=== PATIENT | male | born 1985 | race Caucasian/White ===

== ENCOUNTER 2017-01-27 18:23 | Inpatient (IN) | payer OTHER ==
--- NOTE | ~2017-01-27 | CO ---
Unit #: [id number] #: [id number] Patient: KODAK HUDSON [id number] [address] [address] [id number] I MR#: [id number] NAME: KODAK HUDSON ROOM: [facility] Age: Sex: M Admission Date: 01/27/2017 : 1985 Attending Physician: Rahul Bailey M.D. Primary Care Physician: Opal Shi M.D. CONSULTATION REPORT REASON FOR CONSULTATION Critical care management and respiratory failure. CHIEF COMPLAINT Altered mental status. HISTORY OF PRESENT ILLNESS A 31-year-old male. Past medical history significant for anxiety, depression, gastroesophageal reflux disease, history of chronic pancreatitis, who presents with the complaint of found unresponsive, altered mental status and was intubated with a possible suspicion of drug overdose. I am seeing the patient at bedside, currently on a ventilator, sedated, intubated. PAST MEDICAL HISTORY As described above. SOCIAL HISTORY Positive for substance abuse. Nonsmoker. No alcohol abuse. ALLERGIES No known drug allergies. MEDICATION 1. Xanax. 2. Celexa. 3. Temovate. 4. Prilosec. REVIEW OF SYSTEMS Unobtainable. PHYSICAL EXAMINATION VITAL SIGNS: Temperature 98. Pulse 87. Respiration 12. Blood pressure 130/70. NEUROLOGIC: Awake, alert, oriented. No neuro deficit. HEENT: PERRLA. NECK: Supple. No JVD. CHEST: Bilateral air entry. Bilateral mild rhonchi. GASTROINTESTINAL: Nontender. Soft. Bowel sounds positive. EXTREMITIES: No edema. SKIN: No rash. LYMPHATIC: No lymphadenopathy. Unit #: [id number] #: [id number] Patient: KODAK HUDSON DIAGNOSTIC STUDIES Labs and imaging have been reviewed. LABORATORY: Potassium 3.1. Drug screen is positive for methadone, benzodiazepine, cocaine, amphetamine, marijuana. IMAGING: Chest x-ray: No acute infiltrate. ASSESSMENT AND PLAN Acute respiratory failure, drug overdose, altered mental status. The plan is to continue ventilator support, GI and DVT prophylaxis, IV fluid, replace electrolytes, weaning protocol. The patient will be closely monitored. Please see orders for detailed plan. Thank you very much for this consultation. Dictated by... Martha Troncoso M.D. Dhaval TD: 01/28/2017 08:54 JOB #: [id number] CONSULTATION REPORT Page 1 of 1 X Martha Troncoso MD CONSULTATION REPORT
--- NOTE | ~2017-01-27 | CR72 ---
[facility] A Service of [facility] & [facility] RADIOLOGY TEXT RESULTS PATIENT: KODAK HUDSON LOCATION: A 228-01 : [birth year] UNIT #: [id number] AGE: [address]: Rahul Bailey MD SEX: M ORDER DR: [id number] [facility] [address] [place], [place] [address] [id number] MR#: [id number] Acc #: [id number] NAME: KODAK HUDSON : 1985 SEX: M STUDY DATE/TIME: 01/28/2017 5:31 UNIT: [facility] ROOM: [facility] STUDY DESCRIPTION: CR Chest Single View Portable Attending Physician: Rahul Bailey M.D. Ordering Physician: Wilian Henson M.D. Primary Care Physician: Opal Shi M.D. MEDICAL IMAGING REPORT This report is preliminary unless electronic signature is present EXAM Portable chest HISTORY Overdose, respiratory failure, overdose 01/27/2017. History of drug abuse. COMPARISON 01/27/2017 at 1927 hours FINDINGS Endotracheal tube remains in satisfactory position, unchanged. Small amount of right mid lung zone atelectasis. No dense airspace disease, no consolidation, no pneumothorax. Heart and mediastinum unremarkable. Dictated by... Fatemeh Canchola M.D. THIS IS AN ELECTRONICALLY VERIFIED REPORT Fatemeh Canchola M.D. at 01/29/2017 12:28 PM ROSA/lola TD: 01/28/2017 21:23 JOB #: [id number] MEDICAL IMAGING REPORT Page 1 of 1 COPY
--- NOTE | ~2017-01-27 | CT71 ---
[facility] A Service of [facility] RADIOLOGY TEXT RESULTS PATIENT: KODAK HUDSON LOCATION: [facility] : 84 UNIT #: [id number] AGE: [address]: Rahul Bailey MD SEX: M ORDER DR: [id number] [place] [id number] [facility]. [place], [place] [address] [id number] I MR#: [id number] Acc #: [id number] NAME: KODAK HUDSON : 1985 SEX: M STUDY DATE/TIME: 01/27/2017 20:28 UNIT: [facility] ROOM: 228 STUDY DESCRIPTION: CT Head Wo Contrast Attending Physician: Rahul Bailey M.D. Ordering Physician: Wilian Henson M.D. Primary Care Physician: Opal Shi M.D. MEDICAL IMAGING REPORT This report is preliminary unless electronic signature is present EXAM Head CT without contrast, 01/27/2017. HISTORY Acute mental status change today, acute onset of confusion, combative, overdose unknown substance today, respiratory failure, intubated. TECHNIQUE Axial noncontrast images were obtained from the skull base to the vertex. This CT exam was performed with one or more of the following radiation dose reduction techniques: automatic exposure control, adjustment of mA and/or kV according to patient size, and iterative reconstruction. FINDINGS Ventricular size and configuration are normal. There is no evidence of acute infarct or hemorrhage. There are no extraaxial fluid collections. No mass lesion or mass effect is seen. There are no skull fractures. IMPRESSION Normal noncontrast head CT. Dictated by... Ameya Rocha M.D. THIS IS AN ELECTRONICALLY VERIFIED REPORT Ameya Rocha M.D. at 01/29/2017 6:20 AM BRENDA/estiven TD: 01/28/2017 15:55 JOB #: [id number] [facility] of [facility] RADIOLOGY TEXT RESULTS PATIENT: KODAK HUDSON LOCATION: [facility] : 84 UNIT #: [id number] AGE: [address]: Rahul Bailey MD SEX: M ORDER DR: MEDICAL IMAGING REPORT Page 1 of 1 COPY
--- NOTE | ~2017-01-27 | HP ---
Unit #: [id number] #: [id number] Patient: KODAK HUDSON [id number] [facility] [address] [facility] [place], [place] [address] [id number] I MR#: [id number] NAME: KODAK HUDSON ROOM: [facility] Age: 31 Sex: M Admission Date: 01/27/2017 : 1985 Attending Physician: Rahul Bailey M.D. Primary Care Physician: Opal Shi M.D. HISTORY AND PHYSICAL CHIEF COMPLAINT Unresponsive. HISTORY OF PRESENT ILLNESS A 31-year-old male who is known to me, was discharged from my practice in the past for the same reason, came because of overdose. He is awake and alert at this time. Per him, he went to see a friend and starting using methadone, cocaine, Xanax, and also marijuana. He was brought to ER, was intubated and was admitted to ICU at [facility]. Patient is being evaluated in room 1, ICU. Patient is awake, alert, and has been extubated already. He is oriented x3 and does not have any complaints at this time. PAST MEDICAL HISTORY 1. History of drug abuse. 2. Anxiety disorder. 3. Posttraumatic stress disorder. HOME MEDICATIONS None. SOCIAL HISTORY Patient lives at home with his mother. No history of smoking or alcohol abuse, but he does have history of drug abuse. Patient denies IV drug abuse. ALLERGIES No known drug allergies. PAST SURGICAL HISTORY Oral surgeries in the past. REVIEW OF SYSTEMS There is no history of fever, chills, or rigors. No history of chest pain. No history of abdominal pain. No history of nausea, vomiting. No history of dizziness or syncopal episode. No history of constipation or diarrhea. No skin issues. PHYSICAL EXAMINATION GENERAL: Patient is evaluated in room 1. He is awake, alert, oriented x3. VITAL SIGNS: Blood pressure 126/81, respiratory rate 18, pulse 90, temperature 98, oxygen saturation is 96%. HEENT: Head is normocephalic. Eye movements are normal. Unit #: [id number] #: [id number] Patient: KODAK HUDSON NECK: Supple. CHEST: Fair air entry. No additional sounds. CARDIOVASCULAR: S1, S2 positive. Regular rhythm. ABDOMEN: Soft. EXTREMITIES: Trace edema. CENTRAL NERVOUS SYSTEM: Patient is awake, alert, oriented x3. No focal neurological deficits. DIAGNOSTIC STUDIES LABORATORY: Urine drug screen is positive for methadone, benzodiazepine, cocaine, and amphetamines. Urinalysis is normal. Sodium 138, potassium 3.2, chloride 106, BUN 18, creatinine 1.1. Acetaminophen less than 10. Salicylate less than 4. Alcohol less than 5. Ammonia level is 21. Lactic acid 0.9. ASSESSMENT Patient is admitted to intensive care unit at [facility]. Admitting diagnoses are: 1. Acute hypoxic respiratory failure, secondary to drug overdose. Patient has been extubated. 2. Polysubstance abuse. 3. Anxiety disorder. 4. Hypokalemia. 5. Posttraumatic stress disorder. PLAN 1. Admit to intensive care unit. 2. Dr. Troncoso has been consulted. 3. The patient has extubated. 4. We are going to continue to observe in intensive care unit for some time. 5. Diet will be started. 6. IV Protonix 40 mg daily is being started. 7. Lovenox 40 mg subcutaneous daily is being started. 8. Potassium will be replaced. 9. [facility] will be consulted. 10. Labs will be repeated tomorrow morning. Dictated by Jose Aranda/reid TD: 01/28/2017 12:43 JOB #: [id number] HISTORY AND PHYSICAL Page 1 of 1 X Opal Shi MD X HISTORY AND PHYSICAL
--- NOTE | ~2017-01-27 | EKG ---
PATIENT: KODAK HUDSON UNIT #: [id number] Ventricular Rate: 62 BPM Atrial Rate: 62 BPM P-R Interval: 160 ms QRS Duration: 106 ms Q-T Interval: 426 ms QTC Calculation(Bezet): 432 ms P [place]: 22 degrees Calculated R [place]: -7 degrees Calculated T [place]: 23 degrees Diagnosis Line: Normal sinus rhythm Diagnosis Line: Normal ECG Diagnosis Line: When compared with ECG of 10-FEB-2015 14:53, Diagnosis Line: Vent. rate has decreased BY 43 BPM Diagnosis Line: QRS duration has increased Diagnosis Line: Confirmed by NIDIA SHAHID MD ([id number]) on 01/29/2017 Diagnosis Line: 2:57:36 PM INTERPRETING MD: ZEHRA SANTANA
--- NOTE | ~2017-01-27 | DS ---
Unit #: [id number] #: [id number] Patient: KODAK HUDSON [id number] [address] [address] [id number] I MR#: [id number] NAME: KODAK HUDSON ROOM: 228 Age: 31 Sex: M Admission Date: 01/27/2017 : 1985 Discharge Date: Attending Physician: Rahul Bailey M.D. Primary Care Physician: Opal Shi M.D. DISCHARGE SUMMARY DISCHARGE DATE 01/30/2017 DISCHARGE DIAGNOSES 1. Status post acute hypercapnic respiratory failure. 2. Polysubstance abuse. 3. Anxiety. 4. History of posttraumatic stress disorder. CONSULTS ON THIS HOSPITAL STAY Pulmonary, Dr. Aguila Gaitan, and Psychiatry, [facility]. DISCHARGE MEDICATION Vistaril 50 mg p.o. q.6 hours p.r.n. for anxiety. DISPOSITION Going home. Outpatient followup with [facility] one to two days. HISTORY OF PRESENT ILLNESS Please refer to H and P done by my colleague, Dr. Opal Shi, for initial presentation on this gentleman. ACTIVE PROBLEMS/DIAGNOSES Acute hypercapnic respiratory failure: Initially was intubated, admitted to ICU, was extubated successfully, per Pulmonary evaluation, stable from pulmonary standpoint to be discharged. Pulmonary Service signed off. Polysubstance abuse: The patient denies intentional OD, denies any suicidal ideation, status post [facility] evaluation for the rehab, recommended outpatient follow up with [facility]. Anxiety: We will start on Vistaril. History of PTSD: We will defer to [facility] as an outpatient. Discharge meds for above. Disposition as above. Dictated by... Rahul Bailey M.D. OC/bd TD: 01/30/2017 06:48 Unit #: [id number] #: [id number] Patient: KODAK HUDSON JOB #: [id number] DISCHARGE SUMMARY Page 1 of 1 X Rahul Bailey MD X DISCHARGE SUMMARY
--- NOTE | ~2017-01-27 | CR72 ---
[facility] A Service of [facility] & [facility] RADIOLOGY TEXT RESULTS PATIENT: KODAK HUDSON LOCATION: [facility] 228-01 : [birth year] UNIT #: [id number] AGE: [address]: Rahul Bailey MD SEX: M ORDER DR: [id number] [facility] [address] [facility]. [place], [place] [address] [id number] I MR#: [id number] Acc #: [id number] NAME: KODAK HUDSON : 1985 SEX: M STUDY DATE/TIME: 01/27/2017 19:27 UNIT: [facility] ROOM: [facility] STUDY DESCRIPTION: CR Chest Single View Portable Attending Physician: Rahul Bailey M.D. Ordering Physician: Wilian Henson M.D. Primary Care Physician: Opal Shi M.D. MEDICAL IMAGING REPORT This report is preliminary unless electronic signature is present EXAM Portable chest, 01/27/2017. HISTORY Respiratory failure today, intubated, follow up infiltrates. Short of breath, cough and chest congestion. FINDINGS The cardiac and mediastinal structures are stable compared with 02/10/2015. Endotracheal tube has been inserted with the tip approximately 3 cm above the janet. There is poor inspiratory result with bibasilar atelectasis. Lungs are otherwise clear. There are no pleural effusions. IMPRESSION Endotracheal tube tip 3 cm above the janet. Dictated by... Ameya Rocha M.D. THIS IS AN ELECTRONICALLY VERIFIED REPORT Ameya Rocha M.D. at 01/29/2017 6:19 AM BRENDA/neisha TD: 01/28/2017 15:18 JOB #: [id number] MEDICAL IMAGING REPORT Page 1 of 1 COPY
[~2017-01-27 18:23] MED LIST: ALPRAZOLAM PO; ATIVAN0.5 MG DOB; CELEXA PO; CELEXA20 MG PO; CLOBETASOL 0.0560 GM TOP; FLEXERIL PO; IBUPROFEN800 MG PO; KETOPROFEN PO; NAPROSYN250 M1 PO; NEXIUM PO; OMEPRAZOLE20 M2 PO; PRAMOSONE 2.528.4 G1 TOP; PRILOSEC PO; PRILOSEC40 MG PO; PROMETHAZINE HC25 MG PO; SKELAXIN PO; TEMAZEPAM PO; TEMOVATE 0.05%15 G1 EXT; TYLOX1 CAP 5/50 PO; XANAX0.5 MG PO; XANAX1 MG PO; XANAX2 MG PO
[2017-01-27 19:24] LABS: ARTERIAL BLD GAS O2 SATURATION 98.7 % (90.0-100.0); ARTERIAL BLOOD GAS CARBOXY HB 0.6 %sat (0.0-9.0); ARTERIAL BLOOD GAS HCO3 25.4 mmol/L; ARTERIAL BLOOD GAS MET HB 0.7 %sat (0.0-2.0); ARTERIAL BLOOD GAS PCO2 39.9 mmHg (35.0-45.0); ARTERIAL BLOOD GAS pH 7.411 (7.350-7.450)
[2017-01-27 19:26] LABS: ARTERIAL BLOOD GAS ALLEN TEST NORMAL; ARTERIAL BLOOD GAS ART SITE RIGHT RADIAL; ARTERIAL BLOOD GAS DELIVERY VENT; ARTERIAL BLOOD GAS VENT MODE A/C; ARTERIAL DRAW? YES
[2017-01-27 19:33] LABS: BASOPHIL# 0.1 X10e3 (0-0.3); BASOPHIL% 0.5 % (0-2.5); EOSINOPHIL% 0.4 % (0.0-7.0); HEMATOCRIT 39.1 % (38.0-50.0); HEMOGLOBIN 12.9 gm/dL (13.0-16.0); LYMPHOCYTE# 3.6 X10e3 (1.0-3.5); LYMPHOCYTE% 34.9 % (17.0-45.0); MEAN CELL VOLUME 88.7 FL (83-96); MEAN CORPUSCULAR HEMOGLOBIN 29.3 PG (28-34); MEAN CORPUSCULAR HGB CONC 33.1 g/dL (30-36); MEAN PLATELET VOLUME 8.3 FL (6.5-11.5); MONOCYTE# 1.2 X10e3 (0-1.0); MONOCYTE% 11.9 % (3.0-12.0); NEUTROPHIL# 5.3 X10e3 (1.5-7.1); NEUTROPHIL% 52.3 % (40-75); PLATELET COUNT 221 X10e3 (140-420); RED CELL DISTRIBUTION WIDTH 13.2 % (11.0-15.5); WHITE BLOOD COUNT 10.2 X10e3 (4.0-10.5)
[2017-01-27 19:37] LABS: DIFF IND NO
[2017-01-27 19:41] LABS: POC - CKMB 1.8 ng/mL (0.0-7.9); POC - TROPONIN <0.05 ng/mL (<=0.05)
[2017-01-27 19:44] LABS: INR 1.1; PROTHROMBIN TIME (PATIENT) 11.5 SECONDS (10.0-11.7)
[2017-01-27 19:47] LABS: URINE SOURCE CLEAN CATCH
[2017-01-27 19:48] LABS: AMPHETAMINE POS (NEG); BARBITURATES NEG (NEG); BENZODIAZEPINES POS (NEG); COCAINE POS (NEG); MARIJUANA POS (NEG); OPIATES NEG (NEG); TRICYCLIC ANTIDEPRESSANTS NEG (NEG); U METHADONE POS (NEG)
[2017-01-27 19:49] LABS: ALBUMIN SERUM 4.3 g/dL (3.5-5.0); ALKALINE PHOSPHATASE 59 U/L (32-92); ALT (SGPT) 45 U/L (10-40); AST (SGOT) 41 U/L (10-42); BILIRUBIN, DIRECT 0.3 mg/dL (0.0-0.2); BILIRUBIN,INDIRECT 1.6 mg/dL (0.0-0.9); BILIRUBIN,TOTAL 1.9 mg/dL (0.2-2.0); BLOOD UREA NITROGEN 18 mg/dL (9-23); BUN/CREATININE RATIO 16.36; CALCIUM SERUM 9.1 mg/dL (8.4-10.2); CARBON DIOXIDE 24 mmol/L (22-31); CHLORIDE 106 mmol/L (100-111); CREATININE SERUM 1.1 mg/dL (0.6-1.4); GLOM FILT RATE Estimated 88.4 mL/min (>60); GLUCOSE FASTING 93 mg/dL (70-110); POTASSIUM 3.2 mmol/L (3.5-5.1); SALICYLATE <4.0 mg/dL; SODIUM 138 mmol/L (135-145)
[2017-01-27 19:51] LABS: URINE APPEARANCE TURBID; URINE BLOOD NEG (NEG); URINE COLOR DK YELLOW; URINE GLUCOSE NEG (NEG); URINE KETONE NEG (NEG); URINE LEUKOCYTE ESTERASE NEG (NEG); URINE NITRATE NEG (NEG); URINE PROTEIN NEG (NEG); URINE SPECIFIC GRAVITY 1.031 (1.003-1.035)
[2017-01-27 19:56] LABS: CULTURE INDICATED? NO; URINE BILIRUBIN POS (NEG)
[2017-01-27 19:57] LABS: ACETAMINOPHEN <10 ug/mL; ALCOHOL BLOOD <5 mg/dL (0)
[2017-01-28 04:32] LABS: BASOPHIL% 0.7 % (0-2.5); EOSINOPHIL# 0.1 X10e3 (0-0.7); EOSINOPHIL% 0.9 % (0.0-7.0); HEMATOCRIT 37.4 % (38.0-50.0); HEMOGLOBIN 12.5 gm/dL (13.0-16.0); LYMPHOCYTE# 2.1 X10e3 (1.0-3.5); LYMPHOCYTE% 29.6 % (17.0-45.0); MEAN CELL VOLUME 87.8 FL (83-96); MEAN CORPUSCULAR HEMOGLOBIN 29.3 PG (28-34); MEAN CORPUSCULAR HGB CONC 33.4 g/dL (30-36); MEAN PLATELET VOLUME 8.2 FL (6.5-11.5); MONOCYTE# 0.7 X10e3 (0-1.0); MONOCYTE% 10.7 % (3.0-12.0); NEUTROPHIL% 58.1 % (40-75); PLATELET COUNT 186 X10e3 (140-420); RED BLOOD COUNT 4.26 X10e (3.90-5.60); RED CELL DISTRIBUTION WIDTH 13.7 % (11.0-15.5); WHITE BLOOD COUNT 6.9 X10e3 (4.0-10.5)
[2017-01-28 04:38] LABS: DIFF IND NO
[2017-01-28 04:44] LABS: BILIRUBIN,TOTAL 1.7 mg/dL (0.2-2.0); BUN/CREATININE RATIO 22.85; CALCIUM SERUM 8.9 mg/dL (8.4-10.2); CREATININE SERUM 0.7 mg/dL (0.6-1.4); GLOM FILT RATE Estimated 124.9 mL/min (>60); POTASSIUM 3.1 mmol/L (3.5-5.1); PROTEIN TOTAL SERUM 7.6 g/dL (6.0-8.3)
[2017-01-28 04:48] LABS: ARTERIAL BLD GAS O2 SATURATION 97.2 % (90.0-100.0); ARTERIAL BLOOD GAS CARBOXY HB 0.6 %sat (0.0-9.0); ARTERIAL BLOOD GAS HCO3 25.8 mmol/L; ARTERIAL BLOOD GAS MET HB 0.7 %sat (0.0-2.0); ARTERIAL BLOOD GAS PCO2 38.1 mmHg (35.0-45.0)
[2017-01-28 04:55] LABS: ARTERIAL BLOOD GAS ALLEN TEST NORMAL; ARTERIAL BLOOD GAS ART SITE LEFT RADIAL; ARTERIAL BLOOD GAS DELIVERY VENT; ARTERIAL BLOOD GAS VENT MODE AC; ARTERIAL DRAW? YES
[2017-01-29 06:37] LABS: BUN/CREATININE RATIO 17.14; CALCIUM SERUM 8.2 mg/dL (8.4-10.2); CREATININE SERUM 0.7 mg/dL (0.6-1.4); GLOM FILT RATE Estimated 124.9 mL/min (>60); MAGNESIUM 1.9 mg/dL (1.6-3.0); POTASSIUM 3.2 mmol/L (3.5-5.1)
[2017-01-29] MEDS ORDERED: VISTARIL50 MG PO (22:14)
== END 2017-01-30 14:55 | disposition home or self-care (01) | DRG 917 ==
LOC: CED 18:23 → CEDOF 21:20 → CED 21:38 → CEDOF 21:38 → CICCU2 01-28 01:08 → CEDOF 01-28 01:08 → C2A 01-28 15:39 → CICCU2 01-28 15:39 → C2A 01-30 14:55
PROVIDERS: Emergency Medicine; Hospitalist; Physician Assistant Medical
PROC: 0BH17EZ Insertion of Endotracheal Airway into Trachea, Via Natural or Artificial Opening (ICD-10-PCS; principal; 2017-01-27)
PROC: 5A1935Z Respiratory Ventilation, Less than 24 Consecutive Hours (ICD-10-PCS; 2017-01-27)
DX: T40.3X1A Poisoning by methadone, accidental (unintentional), initial encounter (principal); J96.02 Acute respiratory failure with hypercapnia; J96.01 Acute respiratory failure with hypoxia; T40.5X1A Poisoning by cocaine, accidental (unintentional), initial encounter; T42.4X1A Poisoning by benzodiazepines, accidental (unintentional), initial encounter; T40.7X1A Poisoning by cannabis (derivatives), accidental (unintentional), initial encounter; F15.10 Other stimulant abuse, uncomplicated; F14.10 Cocaine abuse, uncomplicated; F12.10 Cannabis abuse, uncomplicated; F13.10 Sedative, hypnotic or anxiolytic abuse, uncomplicated; F41.9 Anxiety disorder, unspecified; F43.10 Post-traumatic stress disorder, unspecified; E87.6 Hypokalemia
CPT/HCPCS: 31500; 36410; 36600; 51702; 70450; 71010; 80048; 80053; 80076; 80307; 81003; 82140; 82553; 82803; 82947; 83605; 83735; 84132; 84484; 85025; 85610; 85730; 93005; 94002; 94760; 96374; 99291; C9113; G0480; J0330; J0360; J1650; J2250; J2543; J3010; J3475